=== PATIENT | female | born 1970 | race Caucasian/White ===

== ENCOUNTER 2023-01-29 08:14 | Day surgery (SDC) | payer BC ==
[2023-01-29] MEDS ORDERED: Lidocaine 2% 5 ML SDV IV ONE (08:15)
[2023-01-29] MEDS ORDERED: Midazolam 1 MG/ML 2 ML SDV IV ONE (08:15)
[2023-01-29] MEDS ORDERED: Propofol 200 MG/20 ML SDV IV ONE (08:15)
[2023-01-29] MEDS ORDERED: Sodium Chloride 0.9% 10 ML Syringe FLUSH PRN (08:33)
[2023-01-29] MEDS ORDERED: Lactated Ringers 1,000 ML IV SCH (08:45)
== END 2023-01-29 11:10 | disposition home or self-care (01) ==
LOC: FB.SDS 08:14
PROVIDERS: ATTEND Surgery
DX: Z12.11 Encounter for screening for malignant neoplasm of colon (principal); E03.9 Hypothyroidism, unspecified; E78.5 Hyperlipidemia, unspecified; Z80.0 Family history of malignant neoplasm of digestive organs; Z79.899 Other long term (current) drug therapy; Z79.890 Hormone replacement therapy
CPT/HCPCS: 00812; 45378; J2250; J2704; J7120